=== PATIENT | female | born 1955 ===

== ENCOUNTER 2019-01-22 05:04 | Emergency (ER) | payer BC ==
[~2019-01-22] VITALS: Ht 172.7 cm; Wt 108.9 kg
[2019-01-22] MEDS ORDERED: Bactrim Ds Tab1 EACH PO (05:34)
[2019-01-22] MEDS ORDERED: MYCO250 PO (05:35)
[2019-01-22] MEDS ORDERED: INSULANPEN (05:36)
[2019-01-22] MEDS ORDERED: AMLO5 PO (05:36)
[2019-01-22] MEDS ORDERED: ATOR10 PO (05:37)
[2019-01-22] MEDS ORDERED: Humalog100 UNIT/1 (05:37)
[2019-01-22] MEDS ORDERED: PRED10 PO (05:38)
[2019-01-22] MEDS ORDERED: QVAR REDIHALE10.6 G1 INH (05:39)
[2019-01-22] MEDS ORDERED: FURO20 PO (05:39)
[2019-01-22] MEDS ORDERED: MONT10T PO (05:39)
[2019-01-22] MEDS ORDERED: Loratadine10 MG PO (05:40)
[2019-01-22] MEDS ORDERED: ALBU90OI INH (05:40)
[2019-01-22] MEDS ORDERED: ASPI81CH PO (05:41)
[2019-01-22] MEDS ORDERED: Coenzyme Q10100 M1 PO (05:41)
[2019-01-22] MEDS ORDERED: HYDR1TAB94 PO (06:24)
[2019-01-22] MEDS ORDERED: Neurontin 300300 MG PO (06:24)
== END 2019-01-22 06:43 | disposition home or self-care (01) ==
LOC: ER 05:04
DX: M54.31 Sciatica, right side (principal); E11.9 Type 2 diabetes mellitus without complications; Z79.4 Long term (current) use of insulin
CPT/HCPCS: 99283

== ENCOUNTER → 2019-05-13 | Outpatient (CLI) | payer BC ==
[~2019-05-13] MED LIST: ALBU90OI INH; AMLO5 PO; ASPI81CH PO; ATOR10 PO; Bactrim Ds Tab1 EACH PO; Coenzyme Q10100 M1 PO; FURO20 PO; HYDR1TAB94 PO; Humalog100 UNIT/1; INSULANPEN; Loratadine10 MG PO; MONT10T PO; MYCO250 PO; Neurontin 300300 MG PO; PRED10 PO; QVAR REDIHALE10.6 G1 INH
[2019-05-13 15:37] LABS: Alanine Aminotransfer (ALT/SGP 42 U/L (12-78); Albumin, Blood 4.1 g/dL (3.4-5.0); Albumin/Globulin Ratio 1.4 (0.8-1.8); Alk Phos 91 U/L (50-136); Anion Gap 9 mmol/L (6-16); Aspartate Aminotrans (AST/SGOT 30 U/L (12-37); Bilirubin, Total 0.9 mg/dL (0.1-1.0); Blood Urea Nitrogen 15 mg/dL (8-24); Bun/Creatinine Ratio 22.3 (12.0-20.0); CO2, Blood 26 mmol/L (21-32); Calcium, Blood 8.8 mg/dL (8.5-10.1); Chloride, Blood 106 mmol/L (98-108); Creatinine, Blood 0.67 mg/dL (0.40-1.00); Glomerular Filtration Rate >60 (60-); Glucose, Blood 142 mg/dL (70-99); Potassium, Blood 4.3 mmol/L (3.5-5.5); Sodium, Blood 141 mmol/L (136-145); Total Protein, Blood 7.1 g/dL (6.4-8.2)
== END ==
LOC: LAB 14:25 → LAB SHORT 14:25
PROVIDERS: Hospitalist
DX: E11.9 Type 2 diabetes mellitus without complications (principal); I10 Essential (primary) hypertension
CPT/HCPCS: 80053; 82043

== ENCOUNTER 2019-12-03 09:37 | Day surgery (SDC) | payer MEDICARE, BC ==
[~2019-12-03] VITALS: Ht 172.7 cm; Wt 109.7 kg
[~2019-12-03 09:37] MED LIST changes: +Aspirin EC81 MG PO; -Humalog100 UNIT/1; +Humalog100 UNIT/1 SC; -INSULANPEN; +INSULANPEN SC; +PRED5 PO
[2019-12-03] MEDS ORDERED: Humalog100 UNIT/1 (10:02)
== END 2019-12-03 11:40 | disposition home or self-care (01) ==
LOC: ORSCSDS 09:37
PROVIDERS: Internal Medicine Gastroenterology
PROC: 0DBH8ZX Excision of Cecum, Via Natural or Artificial Opening Endoscopic, Diagnostic (ICD-10-PCS; principal; 2019-12-03 11:00)
PROC: 0DBK8ZX Excision of Ascending Colon, Via Natural or Artificial Opening Endoscopic, Diagnostic (ICD-10-PCS; principal; 2019-12-03 11:00)
PROC: 0DBL8ZX Excision of Transverse Colon, Via Natural or Artificial Opening Endoscopic, Diagnostic (ICD-10-PCS; principal; 2019-12-03 11:00)
DX: Z12.11 Encounter for screening for malignant neoplasm of colon (principal); D12.3 Benign neoplasm of transverse colon; D12.0 Benign neoplasm of cecum; D12.2 Benign neoplasm of ascending colon; K57.30 Diverticulosis of large intestine without perforation or abscess without bleeding; K64.8 Other hemorrhoids; I10 Essential (primary) hypertension; E11.9 Type 2 diabetes mellitus without complications; J84.9 Interstitial pulmonary disease, unspecified; Z99.81 Dependence on supplemental oxygen; Z79.4 Long term (current) use of insulin; Z79.899 Other long term (current) drug therapy; E66.01 Morbid (severe) obesity due to excess calories; Z68.36 Body mass index [BMI] 36.0-36.9, adult; Z79.82 Long term (current) use of aspirin
CPT/HCPCS: 82947; 88305; J2704; J7120

== ENCOUNTER → 2019-12-08 | Outpatient (CLI) | payer MEDICARE, BC ==
[~2019-12-08] MED LIST changes: +Humalog100 UNIT/1
[2019-12-08 17:13] LABS: Free Thyroxine 1.06 ng/dL (0.70-1.60); Thyroid Stimulating Hormone 1.93 uIU/mL (0.360-4.800)
== END | disposition home or self-care (01) ==
LOC: LAB 14:41 → LAB SHORT 14:41
PROVIDERS: Hospitalist
DX: E04.1 Nontoxic single thyroid nodule (principal)
CPT/HCPCS: 84439; 84443

== ENCOUNTER → 2019-12-30 | Day surgery (SDC) | payer MEDICARE, BC ==
[2019-12-30 11:45] LABS: Performing Lab VERACYTE; Test Name FNA
== END ==
LOC: US 12-21 08:00
PROVIDERS: Hospitalist
DX: E04.1 Nontoxic single thyroid nodule (principal)
CPT/HCPCS: 10005

== ENCOUNTER → 2021-01-09 | Outpatient (CLI) | payer MEDICARE, BC | END | disposition home or self-care (01) | LOC: LAB 14:35 → LAB SHORT 14:35 | DX: E11.65 Type 2 diabetes mellitus with hyperglycemia (principal); I48.0 Paroxysmal atrial fibrillation | CPT/HCPCS: 83036; 84443 ==

== ENCOUNTER 2021-04-11 09:02 | Day surgery (SDC) | payer MEDICARE, BC ==
[~2021-04-11] VITALS: Ht 172.7 cm; Wt 107.0 kg
--- NOTE | 2021-04-11 09:27 | NUR ---
04/11/21 0927 Carie Timmons IS ESTEVAN AND ANTICOAG IS ADDED AND IT IS DELIVERED TO OR.
--- NOTE | 2021-04-11 10:29 | NUR ---
04/11/21 1029 Diana Ervin 1 MG EPI ADDED TO EACH OF THE FIRST 3 BAGS OF LR FOR IRRIGATION PER ORDER
--- NOTE | 2021-04-11 11:22 | NUR ---
04/11/21 1122 Bernarda Chin SUPPLEMENTAL O2 D/C AT 1124. SATS 95%. RN ENCOURAGES TO DEEP BREATHE
--- NOTE | 2021-04-11 11:48 | NUR ---
04/11/21 1148 Bernarda Chin SATS ARE 96% ON RA. PT SITTING UP IN RECLINER. RN PROVIDED TEACHING ON INCENTIVE SPIROMETER. PT RETURNED DEMONSTRATION X5.
== END 2021-04-11 12:20 | disposition home or self-care (01) ==
LOC: ORSCSDS 09:02
PROVIDERS: Orthopaedic Surgery
PROC: 0LQ14ZZ Repair Right Shoulder Tendon, Percutaneous Endoscopic Approach (ICD-10-PCS; principal; 2021-04-11 10:15)
PROC: 0PB94ZZ Excision of Right Clavicle, Percutaneous Endoscopic Approach (ICD-10-PCS; principal; 2021-04-11 10:15)
PROC: 0RNJ4ZZ Release Right Shoulder Joint, Percutaneous Endoscopic Approach (ICD-10-PCS; principal; 2021-04-11 10:15)
DX: M75.111 Incomplete rotator cuff tear or rupture of right shoulder, not specified as traumatic (principal); M75.21 Bicipital tendinitis, right shoulder; M19.011 Primary osteoarthritis, right shoulder; M75.41 Impingement syndrome of right shoulder; E11.9 Type 2 diabetes mellitus without complications; I48.0 Paroxysmal atrial fibrillation; G47.33 Obstructive sleep apnea (adult) (pediatric); Z79.4 Long term (current) use of insulin; E66.9 Obesity, unspecified; Z68.35 Body mass index [BMI] 35.0-35.9, adult; Z79.899 Other long term (current) drug therapy
CPT/HCPCS: 82947; C1713; J0171; J0690; J1100; J1885; J2250; J2405; J2704; J2710; J3010; J7120

== ENCOUNTER → 2021-06-27 | Outpatient (CLI) | payer MEDICARE, BC ==
[2021-06-27 16:15] LABS: Alanine Aminotransfer (ALT/SGP 36 U/L (12-78); Albumin, Blood 3.8 g/dL (3.4-5.0); Alk Phos 98 U/L (50-136); Anion Gap 5 mmol/L (6-16); Aspartate Aminotrans (AST/SGOT 31 U/L (12-37); Bilirubin, Total 1.1 mg/dL (0.1-1.0); Blood Urea Nitrogen 13 mg/dL (8-24); Bun/Creatinine Ratio 20.9 (12.0-20.0); CO2, Blood 29 mmol/L (21-32); Calcium, Blood 8.8 mg/dL (8.5-10.1); Chloride, Blood 105 mmol/L (98-108); Creatinine, Blood 0.62 mg/dL (0.40-1.00); Globulin, Blood 3.8 g/dL (2.2-4.0); Glomerular Filtration Rate >60 (60-); Glucose, Blood 145 mg/dL (70-99); Potassium, Blood 4.6 mmol/L (3.5-5.5); Sodium, Blood 139 mmol/L (136-145); Total Protein, Blood 7.6 g/dL (6.4-8.2)
== END | disposition home or self-care (01) ==
LOC: LAB 14:39 → LAB SHORT 14:39
PROVIDERS: Hospitalist
DX: E11.65 Type 2 diabetes mellitus with hyperglycemia (principal); I10 Essential (primary) hypertension
CPT/HCPCS: 80053; 82043

== ENCOUNTER → 2022-11-27 | Outpatient (CLI) | payer MEDICARE, BC ==
[2022-11-27 18:55] LABS: BASOPHILS ABSOLUTE AUTO 0.06 K/mm3 (0.00-0.23); BASOPHILS PERCENT AUTO 1 % (0-2); EOSINOPHILS ABSOLUTE AUTO 0.06 K/mm3 (0.00-0.68); EOSINOPHILS PERCENT AUTO 1 % (0-6); Hematocrit 43.8 % (33.0-51.0); Hemoglobin 14.7 g/dL (11.5-16.0); IMMATURE GRAN ABSOLUTE AUTO 0.02 K/mm3 (0.00-0.10); IMMATURE GRAN PERCENT AUTO 0 % (0-1); LYMPHOCYTES PERCENT AUTO 27 % (21-46); MONOCYTES ABSOLUTE AUTO 0.55 K/mm3 (0.16-1.47); MONOCYTES PERCENT AUTO 7 % (4-13); Mean Corpuscular HGB 31.6 pg (26.0-34.0); Mean Corpuscular HGB Conc 33.6 g/dL (31.5-36.5); Mean Corpuscular Volume 94 fL (80-100); NEUTROPHILS ABSOLUTE AUTO 5.29 K/mm3 (1.96-9.15); NEUTROPHILS PERCENT AUTO 65 % (41-73); Platelet Count 112 K/mm3 (150-400); RDW Coefficient Variation 13.2 % (11.7-14.2); RDW Standard Deviation 45.3 fL (35.1-46.3); Red Blood Cell Count 4.65 M/mm3 (3.80-5.20); White Blood Cell Count 8.18 K/mm3 (4.00-11.30)
[2022-11-27 22:44] LABS: Alanine Aminotransfer (ALT/SGP 63 U/L (12-78); Albumin, Blood 4.1 g/dL (3.4-5.0); Alk Phos 99 U/L (50-136); Anion Gap 7 mmol/L (6-16); Bilirubin, Total 1.1 mg/dL (0.1-1.0); Blood Urea Nitrogen 23 mg/dL (8-24); Bun/Creatinine Ratio 29.4 (12.0-20.0); CHOL/HDL RATIO 1.7; CO2, Blood 25 mmol/L (21-32); Calcium, Blood 9.3 mg/dL (8.5-10.1); Chloride, Blood 105 mmol/L (98-108); Cholesterol 148 mg/dL (50-200); Creatinine, Blood 0.78 mg/dL (0.40-1.00); Glomerular Filtration Rate 83 (60-); Glucose, Blood 177 mg/dL (70-99); HDL Cholesterol 88 mg/dL (>39); LDL/HDL RATIO 0.6; Low Density Lipoprotein Chol 49 mg/dL (0-110); Magnesium, Blood 2.4 mg/dL (1.6-2.4); Potassium, Blood 4.4 mmol/L (3.5-5.5); Sodium, Blood 137 mmol/L (136-145); Total Protein, Blood 8.1 g/dL (6.4-8.2); Triglycerides 53 mg/dL (30-160); Very Low Density Lipoprot Chol 10 mg/dL (6-32)
[2022-11-27 22:52] LABS: Aspartate Aminotrans (AST/SGOT 50 U/L (12-37)
== END | disposition home or self-care (01) ==
LOC: LAB 16:15 → LAB SHORT 16:15
PROVIDERS: Hospitalist
DX: Z12.4 Encounter for screening for malignant neoplasm of cervix (principal); E11.69 Type 2 diabetes mellitus with other specified complication; E78.5 Hyperlipidemia, unspecified; I10 Essential (primary) hypertension
CPT/HCPCS: 80053; 80061; 82043; 83036; 83735; 84443; 85025

== ENCOUNTER → 2022-12-24 | Outpatient (CLI) | payer MEDICARE, BC ==
[2022-12-24 21:36] LABS: Albumin, Blood 3.6 g/dL (3.4-5.0); Albumin/Globulin Ratio 1.1 (0.8-1.8); Bilirubin, Total 0.7 mg/dL (0.1-1.0); Bun/Creatinine Ratio 24.2 (12.0-20.0); Calcium, Blood 8.6 mg/dL (8.5-10.1); Creatinine, Blood 0.66 mg/dL (0.40-1.00); Globulin, Blood 3.3 g/dL (2.2-4.0); Percent Saturation 34.6 % (15.0-50.0); Potassium, Blood 4.2 mmol/L (3.5-5.5); Total Protein, Blood 6.9 g/dL (6.4-8.2)
== END | disposition home or self-care (01) ==
LOC: LAB SHORT 16:34 → LAB 16:34
PROVIDERS: Hospitalist
DX: E61.1 Iron deficiency (principal); E53.8 Deficiency of other specified B group vitamins; R25.2 Cramp and spasm
CPT/HCPCS: 80053; 82607; 82728; 83540; 83550

== ENCOUNTER → 2023-07-09 | Outpatient (CLI) | payer MEDICARE, BC | LOC: LAB SHORT 17:00 → LAB 17:00 | DX: I10 Essential (primary) hypertension (principal); R25.2 Cramp and spasm | CPT/HCPCS: 82550 ==